=== PATIENT | female | born 1990 | race Caucasian/White ===

== ENCOUNTER → 2023-07-31 | Outpatient (CLI) | payer OTHER ==
--- NOTE | 2023-08-01 17:33 | MR ---
EXAMINATION TYPE: MR foot LT wo/w con DATE OF EXAM: 07/31/2023 COMPARISON: None. HISTORY: Left foot lesion, r/o sarcoma, mass top of foot with marker placed. CONTRAST: Standard multiplanar, multisequence MRI departmental protocol images were obtained without contrast a nd with 7.5 mL intravenous Gadavist gadolinium contrast. FINDINGS: A vitamin E marker is placed in the area of clinical concern on sagittal image 9 overlying the dorsal surface at the base of the first and second metatarsal junction with the medial cuneiform. Along the dorsal surface at this level there is an elongated thin-walled fluid collection or cystic structure measuring 1.5 cm along the course of the for sagittal image 10 by 2 to 3 mm in depth by 8 m m transversely coronal image 26. On axial images there is suggestion of 2 adjacent tiny cystic lesion s on axial image 19 and 20 at this level. Some mild enhancement of the adjacent fatty tissue. No susp icious bony destruction is seen. No abnormal widening of the joint space at this level is noted. Remainder of the foot shows no suspicious abnormality. IMPRESSION: There is small thin-walled cyst or 2 adjacent small cystic lesion at area of clinical con cern along the dorsal articulation of the base of the first and second metatarsals with the medial la teral aspect of the medial cuneiform bone. Findings suggest a nonaggressive etiology such as synovial cyst. Mild Local mass effect is present.
== END | disposition home or self-care (01) ==
LOC: RADMRIMAIN 14:56
PROVIDERS: ATTEND Internal Medicine Hematology & Oncology
DX: M85.672 Other cyst of bone, left ankle and foot (principal); C49.9 Malignant neoplasm of connective and soft tissue, unspecified
CPT/HCPCS: 73720; A9585

== ENCOUNTER → 2023-07-31 | Outpatient (CLI) | payer OTHER ==
--- NOTE | 2023-07-31 20:15 | CT ---
EXAMINATION TYPE: CT ChestAbdPelvis w con CT DLP: 1016.0 mGycm, Automated exposure control for dose reduction was used. DATE OF EXAM: 07/31/2023 5:26 PM COMPARISON: None. 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 Two-dimensional coronal and sagittal reconstructions were obtained. Contrast used:100 ml mL of Isovue 300 with IV Contrast, Oral contrast used: with Oral Contrast Findings: CHEST: LUNGS/ PLEURA: Left upper lung 6 mm pulmonary nodule series 3 image 24. No focal consolidation, pneum othorax or pleural effusion. AIRWAY: Patent and unremarkable. HEART: Size within normal limits. MEDIASTINUM: No gross evidence of adenopathy. VASCULATURE: No aortic aneurysm. MUSCULOSKELETAL: No acute osseous abnormalities. SOFT TISSUES/LYMPH NODES: Unremarkable. LOWER NECK: No significant findings. ABDOMEN: ABDOMEN LIVER: Unremarkable GALLBLADDER AND BILE DUCTS: Unremarkable. PANCREAS: Unremarkable. SPLEEN: Unremarkable. ADRENAL GLANDS: Unremarkable. KIDNEYS AND URETERS: No evidence of hydronephrosis or renal calculus. The ureters are unremarkable. Left upper renal nonobstructing calculus measuring 4 mm. PELVIS BLADDER: Unremarkable REPRODUCTIVE: Unremarkable. ABDOMEN & PELVIS STOMACH AND BOWEL: No evidence of bowel obstruction. PERITONEUM: No evidence of pneumoperitoneum or free fluid. VASCULATURE: No evidence of aortic aneurysm. MUSCULOSKELETAL: No acute osseous abnormalities LYMPH NODES: No gross evidence for lymphadenopathy. SOFT TISSUE/ABDOMINAL WALL: Unremarkable IMPRESSION: 1. No evidence for acute process. 2. Left upper lung 6 mm pulmonary nodule with history of neoplasm findings could represent metastati c disease. Consider short-term follow-up in 3-6 months to ensure stability. No additional evidence fo r mass or lymphadenopathy. 3. Nonobstructing left renal calculus.
== END | disposition home or self-care (01) ==
LOC: RADCTMAIN 15:00
PROVIDERS: ATTEND Internal Medicine Hematology & Oncology
DX: N20.0 Calculus of kidney (principal); C49.9 Malignant neoplasm of connective and soft tissue, unspecified; R91.1 Solitary pulmonary nodule
CPT/HCPCS: 71260; 74177; Q9967

== ENCOUNTER → 2023-08-03 | Outpatient (CLI) | payer OTHER ==
--- NOTE | 2023-08-06 09:17 | MR ---
EXAMINATION: MR tib fib LT wo/w con DATE OF EXAM: 08/03/2023 COMPARISON: None HISTORY: Sarcoma, 6 month check up, Hx tumor removed 2019, TECHNIQUE: Multiplanar, multisequence images of the left leg were acquired without and with contrast. FINDINGS: BONES/MARROW: Normal bone marrow signal. SOFT TISSUES: 2.2 x 6.2 cm area of skin/subcutaneous thickening without postcontrast enhancement invo lving the posteromedial aspect of the lower leg at the level of the medial gastrocnemius muscle. Myot endinous structures are normal. No anatomic variant. No bursal distention. No fluid collection. NEUROVASCULAR: Visualized neurovascular structures are normal. OTHER: Normal. No mass. No lymphadenopathy. IMPRESSION: Postsurgical changes and/or scarring posterior medial lower leg without enhancement. No evidence of r ecurrent or metastatic disease
== END | disposition home or self-care (01) ==
LOC: RADMRIMAIN 18:04
PROVIDERS: ATTEND Internal Medicine Hematology & Oncology
DX: C49.9 Malignant neoplasm of connective and soft tissue, unspecified (principal); Z98.890 Other specified postprocedural states
CPT/HCPCS: 73720; A9585

== ENCOUNTER → 2024-05-24 | Outpatient (CLI) | payer BC ==
--- NOTE | 2024-05-24 17:21 | CT ---
EXAMINATION TYPE: CT ChestAbdPelvis w con CT DLP: 1060.9 mGycm, Automated exposure control for dose reduction was used. 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 Oral contrast was administered. Two-dimensional coronal an d sagittal reconstructions were obtained. Findings: CHEST: LUNGS/ PLEURA: Stable posterior left upper lobe 7 mm pulmonary nodule (series 207, image 21). No new or enlarging pulmonary nodules. No focal consolidation, pneumothorax or pleural effusion. AIRWAY: Patent and unremarkable. HEART: Size within normal limits.No pericardial effusion. MEDIASTINUM: No evidence of adenopathy. VASCULATURE: No aortic aneurysm. MUSCULOSKELETAL: No acute osseous abnormalities. No aggressive osseous lesion. SOFT TISSUES/LYMPH NODES: Unremarkable. LOWER NECK: No significant findings. ABDOMEN: ABDOMEN LIVER: Unremarkable GALLBLADDER AND BILE DUCTS: Unremarkable. PANCREAS: Unremarkable. SPLEEN: Unremarkable. ADRENAL GLANDS: Unremarkable. KIDNEYS AND URETERS: No evidence of hydronephrosis. Nonobstructive right renal upper pole 3 mm calcul us. There are 2 nonobstructive left renal calculi with largest within the upper pole measuring up to 4 mm. The kidneys enhance symmetrically. Contrast is demonstrated within both collecting systems on t he delayed phase. PELVIS BLADDER: Incompletely distended but grossly unremarkable. REPRODUCTIVE: Unremarkable. Incidental nabothian cyst. ABDOMEN & PELVIS STOMACH AND BOWEL: Small hiatal hernia, duodenum is unremarkable. No focal bowel wall thickening or s urrounding inflammatory changes. No evidence of bowel obstruction. Enteric contrast reaches the dista l small bowel. PERITONEUM: No evidence of pneumoperitoneum or free fluid. VASCULATURE: No evidence of aortic aneurysm. MUSCULOSKELETAL: No acute osseous abnormalities. No aggressive osseous lesion. LYMPH NODES: No evidence for lymphadenopathy. SOFT TISSUE/ABDOMINAL WALL: Unremarkable IMPRESSION: 1. Stable indeterminant left upper lobe 7 mm pulmonary nodule. No new or enlarging pulmonary nodules . No other suspicious abnormality within the chest, abdomen and pelvis to suggest metastasis. Continu e surveillance of pulmonary nodule is recommended with follow-up CT chest in 6-12 months. 2. Nonobstructing bilateral renal calculus. [facility], , 05/24/2024 5:19 PM
== END | disposition home or self-care (01) ==
LOC: RADCTMAIN 09:42
PROVIDERS: ATTEND Internal Medicine Hematology & Oncology
DX: C49.9 Malignant neoplasm of connective and soft tissue, unspecified (principal); R91.1 Solitary pulmonary nodule; N20.0 Calculus of kidney; N88.8 Other specified noninflammatory disorders of cervix uteri
CPT/HCPCS: 71260; 74177; Q9967

== ENCOUNTER → 2024-12-08 | Outpatient (CLI) | payer BC ==
--- NOTE | 2024-12-08 10:12 | XR ---
EXAMINATION TYPE: XR KUB DATE OF EXAM: 12/08/2024 9:33 AM COMPARISON: 05/24/2024. CLINICAL INDICATION: Female, 33 years old with history of N20.0 Calculus kidney; [facility] TECHNIQUE: One radiographic view of the abdomen was obtained. FINDINGS: There is a moderate stool burden, otherwise, the bowel gas pattern is nonspecific without d ilated loops of small or large bowel. Fecal material and gas are demonstrated throughout the colon an d rectum. There is no evidence for organomegaly or pneumoperitoneum. No acute osseous process. Left renal superior pole calculus seen on prior is obscured by bowel feces. Additionally, 2 calcified lesi ons project over the pelvis are unchanged from 05/24/2024. IMPRESSION: 1. Limited evaluation of the kidneys due to overlapping bowel. Possible bilateral renal stones. Pelv ic stones on the right at that to be similar to prior CT 05/24/2024 and may be outside the renal colle cting system. 2. Nonspecific bowel gas pattern without radiographic evidence for acute process. 3. Moderate stool burden, [facility], , 12/08/2024 10:10 AM
== END | disposition home or self-care (01) ==
LOC: RADXRMAIN 09:12
PROVIDERS: ATTEND Urology
DX: N20.0 Calculus of kidney (principal)
CPT/HCPCS: 74018